=== PATIENT | male | born 1960 | race Caucasian/White ===

== ENCOUNTER 2024-06-10 11:39 | Day surgery (SDC) | payer BC ==
[2024-06-10] MEDS: Polymyxin B/Trimethoprim 10 ML Bottle EYELF SCH (12:53)
[2024-06-10] MEDS: Brimonidine 0.2% Ophth Soln 5 ML Bottle EYELF SCH (12:57)
[2024-06-10] MEDS: Phenylephrine 2.5% Ophth Soln 2 ML Bot EYELF SCH (13:04)
[2024-06-10] MEDS: Tropicamide 1% Ophth Soln 3 ML Bottle EYELF SCH (13:08)
[2024-06-10] MEDS: Tetracaine HCl/PF 0.5% 4 ML Bottle EYEBOTH SCH (14:00)
[2024-06-10] MEDS: Lidocaine 1% PF 2 ML SDV INJECT SCH (14:26)
[2024-06-10] MEDS: Pilocarpine 4% Ophth Soln 15 ML Bot EYELF SCH (14:40)
[2024-06-10] MEDS: Cefuroxime 10 MG/ML SYRINGE EYELF SCH (14:40)
== END 2024-06-10 14:54 | disposition home or self-care (01) ==
LOC: JD.SDS 11:39
PROVIDERS: ATTEND Ophthalmology
DX: H25.813 Combined forms of age-related cataract, bilateral (principal); H21.81 Floppy iris syndrome; H21.42 Pupillary membranes, left eye; I10 Essential (primary) hypertension; Z79.899 Other long term (current) drug therapy
CPT/HCPCS: 66982; A9270; J0697; J3490

== ENCOUNTER 2024-07-15 07:40 | Day surgery (SDC) | payer BC ==
[2024-07-15] MEDS: Polymyxin B/Trimethoprim 10 ML Bottle EYERT SCH (08:05)
[2024-07-15] MEDS: Brimonidine 0.2% Ophth Soln 5 ML Bottle EYERT SCH (08:11)
[2024-07-15] MEDS: Phenylephrine 2.5% Ophth Soln 2 ML Bot EYERT SCH (08:16)
[2024-07-15] MEDS: Tropicamide 1% Ophth Soln 3 ML Bottle EYERT SCH (08:20)
[2024-07-15] MEDS: Tetracaine HCl/PF 0.5% 4 ML Bottle EYEBOTH SCH (09:27)
[2024-07-15] MEDS: Lidocaine 1% PF 2 ML SDV INJECT SCH (10:08)
[2024-07-15] MEDS: Cefuroxime 10 MG/ML SYRINGE EYERT SCH (10:19)
[2024-07-15] MEDS: Pilocarpine 4% Ophth Soln 15 ML Bot EYERT SCH (10:20)
== END 2024-07-15 10:38 | disposition home or self-care (01) ==
LOC: JD.SDS 07:40
PROVIDERS: ATTEND Ophthalmology
DX: H25.811 Combined forms of age-related cataract, right eye (principal); I10 Essential (primary) hypertension; Z79.899 Other long term (current) drug therapy
CPT/HCPCS: 66984; A9270; J0697; J3490; V2632